=== PATIENT | female | born 1950 | race Caucasian/White ===

== ENCOUNTER 2016-11-19 05:52 | Day surgery (SDC) | payer OTHER ==
--- NOTE | ~2016-11-19 | EGD ---
EGD REPORT [facility] [address] [place]. [address] NAME: PRECIOUS CRUZ : 54 STATUS : REG [facility] PAT#: [id number] AGE: 66 ADM/REG DATE : 11/19/16 MR#: [id number] REPORT SERV DATE: 11/19/16 DICTATED BY: ADSI PARIS. DATE: 11/19/16 REPORT STATUS : Draft TRANSCRIBED BY: [facility] DATE: 11/19/16 Endoscopy Center Patient Name: Precious Cruz Date of : 1950 Attending MD: ADIS PARIS MD Procedure Date No Time: 11/19/2016 Procedure: Colonoscopy Indications: High risk colon CA surveillance: Personal history multiple (3 or more) adenomas. Patient Profile: Informed consent was obtained from the patient by me prior to the procedure. Risks, benefits, and alternatives were discussed including the risk of bleeding, perforation, infection, reaction to medicine, missed lesion, and cardiopulmonary complications. Referring MD: Jose Miguel Murphy Medicines: Monitored Anesthesia Care Complications: No immediate complications. Procedure: Pre-Anesthesia Assessment: - ASA Grade Assessment: III - A patient with severe systemic disease. After I obtained informed consent, the scope was passed under direct vision. Throughout the procedure, the patient's blood pressure, pulse, and oxygen saturations were monitored continuously. The PCF [id number] was introduced through the anus and advanced to the cecum, identified by appendiceal orifice and ileocecal valve. The colonoscope was slowly withdrawn with careful examination all mucosal surfaces including specific attention around flexures and tip deflection behind folds; retroflexion performed in rectum. The colonoscopy was performed without difficulty. The patient tolerated the procedure well. The quality of the bowel preparation was adequate. The ileocecal valve, appendiceal orifice and rectum were photographed. Findings: Four sessile polyps were found in the descending colon and in the distal transverse colon. The polyps were 5 to 7 mm in size. These polyps were removed with a cold biopsy forceps. Resection and retrieval were complete. Multiple medium-mouthed diverticula were found in the sigmoid colon, in the descending colon and in the transverse colon. Impression: - Four 5 to 7 mm polyps in the descending colon and in the distal transverse colon. Resected and retrieved. EGD REPORT [address] [address] NAME: PRECIOUS CRUZ : [birth year] STATUS : REG [facility]#: [id number] AGE: 66 ADM/REG DATE : 11/19/16 MR#: [id number] REPORT SERV DATE: 11/19/16 DICTATED BY: ADIS PARIS DATE: 11/19/16 REPORT STATUS : Draft TRANSCRIBED BY: [employer] DATE: 11/19/16 - Diverticulosis in the sigmoid colon, in the descending colon and in the transverse colon. Recommendation: - Patient has a contact number available for emergencies. The signs and symptoms of potential delayed complications were discussed with the patient. Return to normal activities tomorrow. Written discharge instructions were provided to the patient. - Regular diet. - Continue present medications. - Await pathology results. - Repeat colonoscopy for surveillance based on pathology results. - Restart coumadin tonight; check INR 3-5 days PCP; d/w patient done. Procedure Code(s): --- Professional --- 69752, Colonoscopy, flexible, proximal to splenic flexure; with biopsy, single or multiple Diagnosis Code(s): --- Professional --- D12.4, Benign neoplasm of descending colon D12.3, Benign neoplasm of transverse colon K57.30, Diverticulosis of large intestine without perforation or abscess without bleeding Z86.010, Personal history of colonic polyps CPT copyright 2013 [employer]. All rights reserved. The codes documented in this report are preliminary and upon pie baker review may be revised to meet current compliance requirements. ADIS PARIS MD 11/19/2016 7:48 AM This report has been signed electronically. Number of Addenda: 0 Note Initiated On: 11/19/2016 6:58 AM Scope Withdrawal Time 0 hours 18 minutes 49 seconds [id number] [id number]
[~2016-11-19 05:52] MED LIST: AMARYL2 PO; ASAB PO; CARTIA XT240 MG/24 PO; COREG25 PO; COUMADIN3 MG; COUMADIN3 MG PO; CYANO1000T PO; DILACOR X2 PO; FLONASE NAS; GLUCOPHAGE1000 MG; GLUCOPHAGE1000 MG PO; GLUCPH8 PO; HALF81 PO; HYDROCHLOROT25 MG PO; KLOR-CON M1010 MEQ PO; L20 PO; LEVEMIR SC; LISINOPRIL40 MG PO; MAGNEBIND; MCZ25 PO; MEVACOR10 MG PO; NEUR100 PO; NOVOLOG SC; PRILO PO; PROZAC PO; RYTHMOL150 MG PO; SINGULAIR1 PO; ZANTAC150 MG PO; ZESTRIL40 MG PO
[2016-11-19 06:28] LABS: INTERNATIONAL NORMAL RATI 1.1 UNITS (-)
[2016-11-19 06:29] LABS: PROTIME (NOT ORD) 14.3 SEC (12.0-14.5)
== END 2016-11-19 23:59 | disposition home health service (06) ==
LOC: DMU 05:52
PROVIDERS: Anesthesiology; Internal Medicine Gastroenterology
PROC: 0DBL8ZX Excision of Transverse Colon, Via Natural or Artificial Opening Endoscopic, Diagnostic (ICD-10-PCS; 2016-11-19)
PROC: 0DBM8ZX Excision of Descending Colon, Via Natural or Artificial Opening Endoscopic, Diagnostic (ICD-10-PCS; principal; 2016-11-19 07:00)
DX: Z12.11 Encounter for screening for malignant neoplasm of colon (principal); D12.4 Benign neoplasm of descending colon; D12.3 Benign neoplasm of transverse colon; K57.30 Diverticulosis of large intestine without perforation or abscess without bleeding; I10 Essential (primary) hypertension; I48.91 Unspecified atrial fibrillation; G47.33 Obstructive sleep apnea (adult) (pediatric); K21.9 Gastro-esophageal reflux disease without esophagitis; Z86.010 Personal history of colon polyps; Z99.81 Dependence on supplemental oxygen; Z88.0 Allergy status to penicillin
CPT/HCPCS: 82962; 85610; 88305

== ENCOUNTER 2016-12-12 15:42 | Inpatient (IN) | payer OTHER ==
--- NOTE | ~2016-12-12 | DS ---
Discharge Summary [id number] [place]. [address] NAME: DAVID STEELE : 54 STATUS : DIS [facility] PAT#: [id number] AGE: 66 ADM/REG DATE : 12/12/16 MR#: [id number] REPORT SERV DATE: 12/16/16 DICTATED BY: CLIFFORD ACUNA DATE: 12/14/16 REPORT STATUS : Draft TRANSCRIBED BY: MODL DATE: 12/14/16 ADMISSION DATE: 12/12/2016 DISCHARGE DATE: 12/14/2016 DISCHARGE DIAGNOSES: 1. Atrial fibrillation with rapid ventricular response. 2. Acute kidney injury. 3. Lumbar spinal stenosis, diagnosed by MRI. 4. Osteoarthritis of the thoracic spine, diagnosed by MRI. 5. Diabetes mellitus. 6. Obstructive sleep apnea. 7. Hypertension. 8. Chronic Coumadin use. 9. Hyperlipidemia. 10.Benign positional vertigo. 11.Anxiety disorder. 12.Allergic rhinitis, that is chronic. 13.Gastroesophageal reflux. CONSULTANTS DURING THIS HOSPITALIZATION: None. INVASIVE PROCEDURES DONE DURING THIS HOSPITALIZATION: None. IMAGING: EKG showing atrial fibrillation with rapid ventricular response. Two-dimensional echocardiogram showing systolic function of about 50%, concentric moderate left ventricular hypertrophy, left ventricular diastolic function is indeterminate, right ventricular systolic function to be intact, moderate left atrial dilatation, mild mitral regurgitation. MRI of the thoracic spine, bulky osteophyte formation of the right anterior thoracic spine in a pattern compatible with DISH. A small left paramedian disc protrusion plus a spur at T7-T8 without neural impingement. MRI of the lumbosacral spine, high grade central canal stenosis present at L4-L5 level. BRIEF HISTORY OF PRESENT ILLNESS: The patient is a 66-year-old female, presented to the emergency room with primary complaints of back pain and evidence of atrial fibrillation that was chronic and rapid ventricular response. For detailed history and physical exam, please see note dictated by Dr. Zander La on 12/12/2016. HOSPITAL COURSE: After being admitted to the hospital, this patient was placed on IV Cardizem drip. She was given IV fluids as she was noted to have acute kidney injury. Both of those seemed to have resolved within 24 hours except she was still requiring IV Cardizem at that point. We gave her IV digoxin x2 doses and were successfully able to wean her off the Cardizem. Currently, her heart rate is around 90 to 110. I discussed her care with Dr. Discharge Summary [address] [place]. [address] NAME: DAVID STEELE : 54 STATUS : DIS [facility] PAT#: [id number] AGE: 66 ADM/REG DATE : 12/12/16 MR#: [id number] REPORT SERV DATE: 12/16/16 DICTATED BY: CLIFFORD ACUNA DATE: 12/14/16 REPORT STATUS : Draft TRANSCRIBED BY: LEESA DATE: 12/14/16 Bull Kulkarni who is her junior staff accountant and it was recommended that we start her on digoxin 0.125 mg once daily and then follow up in Dr. Kulkarni's office one week after discharge. This patient already is on Rythmol and this could be adjusted upward if further rate control is needed. She did have elevation of blood pressure, so we increased her Coreg to 25 mg twice daily in light of her atrial fibrillation as well. She continued to do well. I discussed her MRI findings of lumbar spinal stenosis with the patient and recommended that she follow up with her primary care physician and possibly refer her to Spine Surgery for further intervention including, but not limited to, surgery. She remained stable otherwise and is being discharged in stable condition. DISCHARGE DISPOSITION: Home. DISCHARGE ACTIVITY: As tolerated. DISCHARGE DIET: 1800-calorie [employer] diet. DISCHARGE MEDICATIONS: Aspirin 81 mg once daily, Coreg 25 mg twice daily, vitamin B12 1000 mcg once daily, Prozac 20 mg once daily, Flonase one spray each nostril once daily, Amaryl 2 mg once daily, lisinopril 40 mg twice daily, Mevacor 10 mg once at bedtime, magnesium oxide 400 mg twice daily, Antivert 25 mg twice daily, Singulair 10 mg once at bedtime, Prilosec 20 mg twice daily, Rythmol 150 mg three times daily, Coumadin 1.5 mg on Mondays and 3 mg on all other days, metformin 1000 mg twice daily, hydrochlorothiazide 25 mg once daily, Neurontin 100 to 200 mg three times daily, potassium 10 mEq once daily, digoxin 0.125 mg once daily. DISCHARGE FOLLOWUP: With Dr. Bull Kulkarni in one week, with Dr. Mandy Stephen as previously scheduled. More than 35 minutes spent planning this patient's discharge, reconciling medications, writing prescriptions, discussing hospital care and followup with the patient, and documenting this discharge. NATHALIA/MODL Clifford Acuna M.D. / [id number] CC: Maria A Shoemaker M.D. Michael C Allan, M.D.
--- NOTE | ~2016-12-12 | HP ---
History And Physical [address] [address] NAME: DAVID STEELE : 54 STATUS : ADM [facility] PAT#: [id number] AGE: 66 ADM/REG DATE : 12/12/16 MR#: [id number] REPORT SERV DATE: 12/13/16 DICTATED BY: SHIRA BROOKE DATE: 12/13/16 REPORT STATUS : Draft TRANSCRIBED BY: MODL DATE: 12/13/16 DATE OF ADMISSION: 12/12/2016 CHIEF COMPLAINT: A 66-year-old female presenting with a primary complaint of back pain and evidence of new onset rapid atrial fibrillation. HISTORY OF PRESENT ILLNESS: The patient's primary complaint has been back pain increasing over the last three weeks. She describes it as in her middle back radiating to the right flank area an aching quality, always present, 9/10 severity with no clear relieving or exacerbating factors. She denies any dysuria. No urinary frequency. She did to go to the emergency department about three weeks ago and was told she had a urinary tract infection, was placed on antibiotics, but had no improvement in her pain. She describes nausea, but no vomiting. Today, she had a near syncopal episode with severe lightheadedness and orthostatic like symptoms. She denies feeling any palpitations at all though. No shortness of breath. No chest pain. No diarrhea or change of bowel habits. She believes her diabetes is under good control, but admits she does not check her blood sugars often. REVIEW OF SYSTEMS: Otherwise, a 14-point review of systems was obtained and was negative. PAST MEDICAL HISTORY: 1. Atrial fibrillation, followed by Dr. Yadiel Kulkarni. The patient on chronic Coumadin. 2. Diabetes. 3. Hypertension. 4. Colon polyps seen by Dr. Kevin Grande. 5. Erosive gastritis. 6. Vertigo. 7. Obstructive sleep apnea, on CPAP. 8. Diverticulitis. 9. Neuropathy. PAST SURGICAL HISTORY: 1. 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 2. Ear tubes and myringectomy. 3. Right ankle surgery. 4. Sinus surgery. ALLERGIES: TO PENICILLIN. History And Physical [address] [address] NAME: DAVID STEELE : 54 STATUS : ADM [facility] PAT#: [id number] AGE: 66 ADM/REG DATE : 12/12/16 MR#: [id number] REPORT SERV DATE: 12/13/16 DICTATED BY: SHIRA BROOKE DATE: 12/13/16 REPORT STATUS : Draft TRANSCRIBED BY: LEESA DATE: 12/13/16 SOCIAL HISTORY: No tobacco abuse. No alcohol abuse. She is single, has no children. She is on disability. Has a sister who lives locally. FAMILY HISTORY: Mother with breast cancer and diabetes. Father with lung cancer. Siblings with heart disease and diabetes. CURRENT MEDICATIONS: 1. Aspirin 81 mg p.o. daily. 2. Coreg 12.5 mg p.o. b.i.d. 3. Vitamin B12. 4. Prozac 20 mg daily. 5. Flonase. 6. Neurontin t.i.d. 7. Amaryl 2 mg p.o. daily. 8. Hydrochlorothiazide 25 mg p.o. daily. 9. Lisinopril 40 mg p.o. b.i.d. 10.Mevacor 10 mg daily. 11.Magnesium 400 mg p.o. b.i.d. 12.Antivert p.r.n. 13.Glucophage 1000 mg p.o. b.i.d. 14.Singulair 10 mg p.o. daily. 15.Prilosec 20 mg p.o. b.i.d. 16.Potassium 10 mEq p.o. daily. 17.Propafenone 150 mg p.o. t.i.d. 18.Coumadin 3 mg p.o. daily. PHYSICAL EXAMINATION: VITAL SIGNS: Temperature 97.6, pulse 148, blood pressure 188/103, respiratory rate 20, and O2 saturation 95% on room air. GENERAL: A pleasant, cooperative female, no evidence of severe distress at this time. She has been treated with IV narcotic pain management in the emergency department with good relief of her back pain. HEENT: Pupils equal, round, and reactive to light. No conjunctival pallor. No scleral icterus. Nares are patent. Oropharynx is clear of obstruction. Dry mucous membranes. NECK: Trachea midline. No thyromegaly. LYMPH: No cervical lymphadenopathy. No supraclavicular lymphadenopathy. RESPIRATORY: Clear to auscultation at bases. I do not appreciate any wheezes, rales, nor rhonchi. The patient has a nonlabored respiratory effort. CARDIOVASCULAR: Tachycardic. Irregularly irregular. No murmurs, rubs, or gallops. No current extremity edema is appreciated. ABDOMEN: Completely soft and nontender. She does have right flank tenderness, but also right mid back tenderness, but no rebound, no guarding, no hepatosplenomegaly. DERMATOLOGIC: Warm and dry extremities. No pallor. No cyanosis. PSYCHIATRIC: Normal affect. Good mood. Alert and oriented x3. LABORATORY DATA: White blood cell count 9.1, hemoglobin 12, hematocrit 36, and platelets History And Physical [address] [address] NAME: DAVID STEELE : 54 STATUS : ADM [facility] PAT#: [id number] AGE: 66 ADM/REG DATE : 12/12/16 MR#: [id number] REPORT SERV DATE: 12/13/16 DICTATED BY: SHIRA BROOKE DATE: 12/13/16 REPORT STATUS : Draft TRANSCRIBED BY: LEESA DATE: 12/13/16 265. Sodium 143, potassium 4.3, chloride 107, bicarb 25, BUN 35, creatinine 1.48 from baseline creatinine of 1.0, and glucose 128. Urinalysis negative for infection, but shows 13 hyaline casts. Troponin negative. INR 2.1. STUDIES: 1. Chest x-ray by my own evaluation shows possible chronic interstitial lung disease? 2. EKG by my own evaluation shows rapid atrial fibrillation. 3. CT scan of the abdomen and pelvis shows no acute intra-abdominal process. ASSESSMENT AND PLAN: 1. Rapid atrial fibrillation, on Coumadin and propafenone. Placed on a Cardizem drip IV. Check telemetry. Check thyroid panel. Check echocardiogram. 2. Severe back pain. Check an MRI of the thoracolumbar spine. 3. Diabetes. Check hemoglobin A1c. Place on sliding scale insulin. Continue home medications. 4. Obstructive sleep apnea. Continue CPAP. 5. Acute kidney injury. Place on IV fluids. Hold hydrochlorothiazide. SHAUN/LEESA Shira Brooke M.D. / [id number] CC: Gary Werner Jr, MD Michael C Allan, M.D. Steven Joe Bradley, DO
[2016-12-12 18:20] LABS: BASOPHILS 0.4 %; BASOPHILS ABSOLUTE 0.04 10/3/uL (0.0-0.16); EOSINOPHILS 6.4 %; EOSINOPHILS ABSOLUTE 0.58 10/3/uL (0.0-0.53); HEMATOCRIT 36.1 % (36.0-48.0); HEMOGLOBIN 11.9 g/dL (12.0-16.0); IMMATURE GRANULOCYTES 0.3 %; IMMATURE GRANULOCYTES ABSOLUTE 0.03 10/3/uL (0.0-0.11); LYMPHOCYTES ABSOLUTE 2.28 10/3/uL (0.67-4.30); MEAN CORPUSCULAR HEMOGLOB 27.7 pg (26.0-34.0); MEAN CORPUSCULAR VOLUME 84.1 fL (80-100); MEAN PLATELET VOLUME 10.2 fL (9.2-13.0); MONOCYTES 5.5 %; NEUTROPHILS 62.4 %; NEUTROPHILS ABSOLUTE 5.69 10/3/uL (2.02-8.40); PLATELET COUNT 265 10/3/uL (150-400); RBC DISTRIBUTION WIDTH 13.9 % (12.0-16.0); RED CELL COUNT 4.29 10/6/uL (4.0-5.6); WHITE BLOOD CELLS 9.1 10/3/uL (4.5-10.5)
[2016-12-12 18:21] LABS: MANUAL DIFF NO %
[2016-12-12 18:30] LABS: INTERNATIONAL NORMAL RATI 2.1 UNITS (-); PARTIAL THROMBO TIME 34.3 SEC (22.5-37.2)
[2016-12-12 18:32] LABS: PROTIME (NOT ORD) 23.5 SEC (12.0-14.5)
[2016-12-12 18:39] LABS: CALCIUM, SERUM 8.7 MG/DL (8.5-10.4); CHEST PAIN PROFILE TAT 0 Hrs 25 Mins; CHLORIDE, SERUM 107 MMOL/L (96-112); CO2 (CARBON DIOXIDE) 25 MMOL/L (24-34); CREATININE 1.48 MG/DL (0.55-1.02); GFR AFRICAN AMERICAN 43 ML/MIN (>=60); GFR NON AFRICAN AMERICAN 37 ML/MIN (>=60); POTASSIUM, SERUM 4.3 MMOL/L (3.5-5.3); SODIUM, SERUM 143 MMOL/L (135-148); TROPONIN I <0.02 NG/ML (<0.05)
[2016-12-12 18:44] LABS: BUN (BLOOD UREA NITROGEN) 35 MG/DL (6-23); GLUCOSE, SERUM 128 MG/DL (60-99)
[2016-12-12 19:35] LABS: ASCORBIC ACID (UR NOT ORDER) NEG (NEG); BILIRUBIN, URINE NEGATIVE (NEG); ER URINALYSIS TAT 0 Hrs 10 Mins; KETONE, URINE NEGATIVE (NEG); LEUKOCYTE ESTERASE(NOT OR NEG (NEG); NITRITE (URINE) NEG (NEG); WBC (NOT ORDERED) (RFLEX) 1 (0-5)
[2016-12-12] MEDS ORDERED: MEVACOR10 MG PO (20:09)
[2016-12-12] MEDS ORDERED: FLONASE NAS (20:12)
[2016-12-12] MEDS ORDERED: CYANO1000T PO (20:13)
[2016-12-12] MEDS ORDERED: HALF81 PO (20:13)
[2016-12-12] MEDS ORDERED: KLOR-CON M1010 MEQ PO (20:13)
[2016-12-12] MEDS ORDERED: MAGOX4 PO (20:14)
[2016-12-13 03:54] LABS: BASOPHILS 0.2 %; BASOPHILS ABSOLUTE 0.02 10/3/uL (0.0-0.16); EOSINOPHILS 6.2 %; EOSINOPHILS ABSOLUTE 0.53 10/3/uL (0.0-0.53); HEMATOCRIT 33.1 % (36.0-48.0); IMMATURE GRANULOCYTES 0.1 %; IMMATURE GRANULOCYTES ABSOLUTE 0.01 10/3/uL (0.0-0.11); LYMPHOCYTES ABSOLUTE 2.04 10/3/uL (0.67-4.30); MEAN CORPUS HGB CONC 33.2 g/dL (32.0-36.0); MEAN CORPUSCULAR HEMOGLOB 27.8 pg (26.0-34.0); MEAN CORPUSCULAR VOLUME 83.6 fL (80-100); MONOCYTES 7.3 %; MONOCYTES ABSOLUTE 0.62 10/3/uL (0.21-1.20); NEUTROPHILS 62.2 %; NEUTROPHILS ABSOLUTE 5.28 10/3/uL (2.02-8.40); PLATELET COUNT 232 10/3/uL (150-400); RBC DISTRIBUTION WIDTH 13.8 % (12.0-16.0); RED CELL COUNT 3.96 10/6/uL (4.0-5.6); WHITE BLOOD CELLS 8.5 10/3/uL (4.5-10.5)
[2016-12-13 03:55] LABS: MANUAL DIFF NO %
[2016-12-13 03:58] LABS: INTERNATIONAL NORMAL RATI 2.1 UNITS (-); PARTIAL THROMBO TIME 35.4 SEC (22.5-37.2); PROTIME (NOT ORD) 23.3 SEC (12.0-14.5)
[2016-12-13 04:15] LABS: A/G RATIO 0.9 (0.7-1.9); ALBUMIN 2.9 G/DL (3.5-5.0); CALCIUM, SERUM 8.4 MG/DL (8.5-10.4); CHLORIDE, SERUM 105 MMOL/L (96-112); CO2 (CARBON DIOXIDE) 26 MMOL/L (24-34); CREATININE 1.13 MG/DL (0.55-1.02); FREE T4 1.14 NG/DL (0.76-1.46); GFR AFRICAN AMERICAN 59 ML/MIN (>=60); GFR NON AFRICAN AMERICAN 51 ML/MIN (>=60); GLOBULIN 3.4 G/DL (2.5-4.1); POTASSIUM, SERUM 3.7 MMOL/L (3.5-5.3); SGOT(AST) 9 U/L (5-40); SGPT(ALT) 19 U/L (5-65); SODIUM, SERUM 142 MMOL/L (135-148); TOTAL BILIRUBIN 0.3 MG/DL (0-1.2); TOTAL PROTEIN 6.3 G/DL (6.0-8.5); TROPONIN I <0.02 NG/ML (<0.05)
[2016-12-13 04:24] LABS: ALKALINE PHOSPHATASE 91 U/L (45-117); BUN (BLOOD UREA NITROGEN) 27 MG/DL (6-23); GLUCOSE, SERUM 173 MG/DL (60-99)
[2016-12-13 04:29] LABS: B NATRIURETIC PEPTIDE (BNP) 400.3 PG/ML (< 100.0)
[2016-12-13 07:42] LABS: GLYCOHEMOGLOBIN (HbA1c) 6.7 % (4.7-6.1)
[2016-12-14 06:22] LABS: BASOPHILS 0.4 %; BASOPHILS ABSOLUTE 0.03 10/3/uL (0.0-0.16); EOSINOPHILS 10.2 %; EOSINOPHILS ABSOLUTE 0.77 10/3/uL (0.0-0.53); HEMATOCRIT 35.6 % (36.0-48.0); HEMOGLOBIN 11.9 g/dL (12.0-16.0); IMMATURE GRANULOCYTES 0.1 %; IMMATURE GRANULOCYTES ABSOLUTE 0.01 10/3/uL (0.0-0.11); LYMPHOCYTES ABSOLUTE 1.43 10/3/uL (0.67-4.30); MANUAL DIFF NO %; MEAN CORPUS HGB CONC 33.4 g/dL (32.0-36.0); MEAN CORPUSCULAR HEMOGLOB 27.5 pg (26.0-34.0); MEAN CORPUSCULAR VOLUME 82.2 fL (80-100); MEAN PLATELET VOLUME 10.2 fL (9.2-13.0); NEUTROPHILS 62.3 %; NEUTROPHILS ABSOLUTE 4.68 10/3/uL (2.02-8.40); PLATELET COUNT 252 10/3/uL (150-400); RBC DISTRIBUTION WIDTH 13.5 % (12.0-16.0); RED CELL COUNT 4.33 10/6/uL (4.0-5.6); WHITE BLOOD CELLS 7.5 10/3/uL (4.5-10.5)
[2016-12-14 06:36] LABS: ALBUMIN 3.2 G/DL (3.5-5.0); CALCIUM, SERUM 8.5 MG/DL (8.5-10.4); CHLORIDE, SERUM 104 MMOL/L (96-112); CO2 (CARBON DIOXIDE) 24 MMOL/L (24-34); CREATININE 0.98 MG/DL (0.55-1.02); GFR AFRICAN AMERICAN 71 ML/MIN (>=60); GFR NON AFRICAN AMERICAN 61 ML/MIN (>=60); POTASSIUM, SERUM 3.7 MMOL/L (3.5-5.3); SODIUM, SERUM 141 MMOL/L (135-148)
[2016-12-14 06:37] LABS: BUN (BLOOD UREA NITROGEN) 21 MG/DL (6-23); GLUCOSE, SERUM 127 MG/DL (60-99)
[2016-12-14 10:54] LABS: INTERNATIONAL NORMAL RATI 2.4 UNITS (-); PROTIME (NOT ORD) 25.9 SEC (12.0-14.5)
[2016-12-14] MEDS ORDERED: LAN125 PO (12:55)
== END 2016-12-14 13:38 | disposition home or self-care (01) | DRG 309 ==
LOC: ER 15:42 → CDU1 21:37
PROVIDERS: Internal Medicine; Nurse Practitioner; Physician Assistant
DX: I48.2 Chronic atrial fibrillation (principal); N17.9 Acute kidney failure, unspecified; E11.40 Type 2 diabetes mellitus with diabetic neuropathy, unspecified; M48.06 Spinal stenosis, lumbar region; M47.9 Spondylosis, unspecified; G47.33 Obstructive sleep apnea (adult) (pediatric); I10 Essential (primary) hypertension; Z79.01 Long term (current) use of anticoagulants; E78.5 Hyperlipidemia, unspecified; H81.10 Benign paroxysmal vertigo, unspecified ear; F41.9 Anxiety disorder, unspecified; J30.89 Other allergic rhinitis; K21.9 Gastro-esophageal reflux disease without esophagitis
CPT/HCPCS: 71010; 72146; 72148; 74176; 80048; 80053; 80069; 81001; 82962; 83036; 83735; 83880; 84439; 84443; 84484; 85025; 85610; 85730; 93005; 96374; 99285; A9270-GY; C8929; J1160; Q9957